=== PATIENT | female | born 1990 | race African-American/Black ===

== ENCOUNTER 2019-03-22 20:17 | Emergency (ER) | payer BC ==
[~2019-03-22] VITALS: Ht 167.6 cm; Wt 79.8 kg
[2019-03-22 20:22] VITALS: Ht 167.6 cm; Wt 79.8 kg
[2019-03-22 22:01] VITALS: BP 124/72
== END 2019-03-22 22:01 | disposition home or self-care (01) ==
LOC: ED 20:17
DX: S06.0X0A Concussion without loss of consciousness, initial encounter (principal); W22.8XXA Striking against or struck by other objects, initial encounter; Y93.89 Activity, other specified; Y92.89 Other specified places as the place of occurrence of the external cause; Y99.8 Other external cause status
CPT/HCPCS: J1885